=== PATIENT | female | born 1975 | race Asian ===

== ENCOUNTER 2024-03-10 21:11 | Inpatient (IN) | payer OTHER, SELFPAY ==
[2024-03-10] VITALS (9 sets, daily range): BP systolic 103–140; BP diastolic 43–64; BMI 33.2; BMI 34.0
--- NOTE | 2024-03-10 16:46 | ED.GENMED ---
History of Present Illness
General
Chief Complaint: Abdominal Pain
Source: patient
Exam Limitations: none
Time Seen by Provider: 03/10/24 16:21
Nursing documentation reviewed up to this point in time: agreed with
Travel History
Have you had any contact with someone who has COVID-19?: No
Do you have any symptoms of coronavirus? Fever > 100 degrees, chills, cough, shortness of breath, sore throat, loss of taste or smell, muscle aches, or headache?: No
History of Present Illness
History of Present Illness:
pt is a 48 y/o F with H/O GERD
here with mid back pain, n/v x 9 today
started around 130 am
has not tried anything for pain
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
went to PCP and sent for urgent labs, CTAP
wbc 13, ct shows findings suspicous for acute justin
recommended US
pain is currently 8/10 mid back
also RUQ
nausea
no fever, chills
no cp, sob
Past History
Past History
ED Past Medical History: GERD
ED Past Surgical History: Appendectomy
Social History
Tobacco: Non-smoker
Alcohol: None
Drug: None
Personal:
Review of Systems
Review of Systems
Allergies reviewed?: Yes
All Other Systems: Not applicable
Phy Exam
Physical Exam
Physical Exam:
GENERAL: Alert uncomfortable
EYE: pupils equal and reactive
NECK: Supple
ENT: o/p clr, mmm.
CARDIAC: Regular rate and rhythm .
LUNGS: Clear breath sounds bilaterally, no acute respiratory distress, no wheezes/rales/rhonchi
ABDOMEN: Soft, mod RUQ tenderness, ibrahim's sign positive, no r/g, no cvat, normal bowel sounds
back: no point tendneress, no rash
NEUROLOGICAL: Alert and oriented, no focal neuro deficits
SKIN: Warm and dry, skin intact.
PSYCH: Normal and appropriate interaction.
Course
Orders/Labs/Results
Orders:
Orders
03/10/24 16:44
Electrocardiogram (*1) Urgent
Reason for Study: Abdominal Pain
EKG- Treatment ONCE
0.9% Sodium Chloride 1000 ml [Nss] 1,000 ml IV BOLUS
HYDROmorphone [Dilaudid] 0.5 mg IV NOW STA
Ondansetron Injectable [Zofran] 4 mg IV NOW STA
US Abdomen Limited Urgent
Reason For Exam: poss acute justin on ct.
03/10/24 16:50
Test Result ONCE
03/10/24 18:08
HCG, Urine Qualitative Screen Urgent
Date Specimen was Collected: 03/10/24
Time Specimen was Collected: 18:06
Urinalysis Reflex To Culture Urgent
Date Specimen was Collected: 03/10/24
Time Specimen was Collected: 18:06
03/10/24 19:04
HYDROmorphone [Dilaudid] 0.5 mg IV NOW STA
Piperacillin/Tazo 3.375 Gram [Zosyn] 3.375 gram in 50 ml IV NOW
03/10/24 20:41
Admit/Transfer Patient As Directed
Co-Sign Provider:
Level of Care: Inpatient admission
Assign to:: Medical/Surgical
Physician / Group: Madi Figueroa
Diagnosis: Acute cholecystitis
Reason for Hospitalization: possible OR
IV abx
Expected length of stay greater than two midnights?: No
ELOS- Estimated Length of Stay in days: 2
I certify the patient meets the requirements for IP care: Yes
03/10/24 20:44
Code Status As Directed
Resuscitation Status: Full Code
03/10/24 22:02
HYDROmorphone [Dilaudid] 0.5 mg IV Q4HPRN PRN
Ondansetron Injectable [Zofran] 4 mg IV Q6HPRN PRN
03/10/24 22:02
Activity As Directed
Activity Level: Out of Bed-Early Mobility
Anti-embolism (GAGANDEEP) Hose As Directed
Type: Thigh high
Intake/ Output As Directed
Frequency: Per unit guidelines
Pneumatic Compression Sleeves As Directed
Type: Thigh high
Vital Signs As Directed
Frequency: Per unit guidelines
DX Deep Vein Thrombosis Video Routine
03/11/24 00:00
Piperacillin/Tazo 3.375 Gram [Zosyn] 3.375 gram in 50 ml IV Q6H
03/11/24 Breakfast
NPO
Allow oral meds: Yes
Allow clear liquids: No
Complete Blood Count/No Diff IN AM
Comprehensive Metabolic Panel IN AM
03/11/24 18:00
Pantoprazole [Protonix] 40 mg PO QPM
Abnormal Lab Results
03/10/24
18:08
Urine Ketones 1+ A
(Negative)
Vital Signs
Initial and Last Documented VS:
Initial Vital Signs
Temp Pulse Resp BP Pulse Ox
100.3 F 65 20 131/56 100
03/10/24 16:05 03/10/24 16:05 03/10/24 16:05 03/10/24 16:05 03/10/24 16:05
Last Documented Vital Signs
Temp Pulse Resp BP Pulse Ox
98.5 F 63 16 135/59 99
03/10/24 22:20 03/10/24 22:20 03/10/24 22:20 03/10/24 22:20 03/10/24 22:20
MDM/Problems Addressed
Differential Diagnosis Includes:
acute justin, cholelithiasis, vomiting
MDM/Problems Addressed:
48 y/o F with what looks like acute cholecystitis
back pain, n/v since 130, borderline temp, wbc 13, tender RUQ prior to meds, lfts normal, us shows gallstone and thickened wall, given zosyn and pain meds
she actually had outpatient labs and ctap today by PCP stat prior to my US here
accepted by dr. figueroa
npo after midnightl
*Critical Care Note
Total Time (30-74mins, 75-104mins- exclusive of procedures): Not Applicable
ED Attending Note
-
Portions of this chart may have been created with voice recognition software.� Occasional wrong word or��sound alike� substitutions may have occurred due to the inherent limitations of voice recognition software.
Discharge Plan
Departure
Patient Disposition: Admit
Date of Disposition: 03/10/24
Time of Disposition: 19:53
Admit to: Med/Surg
Admit to doctor: alfredo
Presentation/result/management discussed w/ accepting MD/DO: alfredo
Condition: Fair
Covid-19: Not Applicable
Discharge Problem:
Calculous cholecystitis
Interventions
Interventions:
*Risk Screen - Suicide Last Done: 03/10/24 16:05
*General Assessment Last Done: 03/10/24 16:05
*Neglect/Abuse Screening Last Done: 03/10/24 16:05
ED- Fall Risk Assessment Last Done: 03/10/24 16:57
*ED COVID-19 Vaccine History Last Done: 03/10/24 21:57
*Nursing Disposition Last Done: 03/10/24 21:57
UQ-Ipqbpd-Jghthzqubs Assessment Last Done: 03/10/24 16:57
Discharge Date and Time
Discharge Date/Time: 03/10/24 21:50
[2024-03-10] MEDS: NSS 1000 IV (16:51)
[2024-03-10] MEDS: DILAUDID 0.5 MG IV ×3 (16:51→23:37)
[2024-03-10] MEDS: ZOFRAN 4 MG IV ×2 (16:51→22:36)
[2024-03-10 18:17] LABS: HCG, Urine Qualitative Screen Negative; Urine Albumin Negative (Neg - Trace); Urine Bilirubin Negative (Negative); Urine Character Clear (Clear); Urine Color Straw; Urine Glucose Negative (Negative); Urine Ketone 1+ (Negative); Urine Leukocyte Negative (Negative); Urine Nitrite Negative (Negative); Urine Occult Blood Negative (Negative); Urine Specific Gravity 1.005 (<1.030); Urine Urobilinogen Negative (Neg - 1+); Urine pH 6.5 (5.0-9.0)
[2024-03-10] MEDS: ZOSYN 50 IV ×2 (19:17→23:37)
--- NOTE | 2024-03-10 20:57 | HPS.HSE ---
Addendum entered and electronically signed by Madi Figueroa MD 03/11/24 10:49:
I saw and examined the patient.
The Supervisor [employer]'s note was reviewed and I agree with the note.
Comment: Remains ttp to RUQ this am. Plan for lap justin today. Informed consent obtained. D/w pt and .
Original Note:
Family Physician
-
Family Physician: Suyapa Pete DO
Chief Complaint
-
'Abdomen pain' ' nausea and vomiting'
History of Present Illness
48 y/o patient with past medical hx of GERD, presents to ER with the c/o abdomen pain since last night. Patient was feeling 'gassy' at first and thought due to the lentils and other food she ate. Then noticed she was nauseous and had been vomiting
all night, threw up food first then it was bilious by description. 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 she went to PCP and was advised to come to [facility] for further work
up. States pain as crampy starts at mid chest radiates to umbilicus and then towards b/l upper back at bra straps. + belching, LBM 5/6, voiding without difficulty. At present denies any chest pain or shortness of breath. Abdomen pain 2/10 after pain
medications. Denies any nausea at present. Hx of x1. Hx of GERD and is on Omeprazole daily
Medical History
Past Medical History
Past Medical History: Reports GERD
Past Surgical History: Reports (x1)
Social History
Tobacco: Non-smoker
Alcohol: Occasional
Drug: None
Family History
Family History: Not pertinent
Allergies / Home Medications
Allergies reflects when Allergies were last updated in [employer].
Home Medications with original date entered in [employer]
Allergy/Medication List:
Allergies
Allergy/AdvReac Type Severity Reaction Status Date / Time
latex Allergy dry skin Verified 03/10/24 16:08
Sulfa (Sulfonamide Allergy Rash Verified 03/10/24 16:08
Antibiotics)
Home Medications
albuterol sulfate 90 mcg/actuation aerosol inhaler 2 puff inhalation R Q4HPRN PRN sob/wheezing 03/10/24
cholecalciferol (vitamin D3) 25 mcg (1,000 unit) tablet (Vitamin D3) 25 mcg PO DAILY 03/10/24
cyanocobalamin (vitamin B-12) 1,000 mcg tablet (Vitamin B-12) 1,000 mcg PO DAILY 03/10/24
omeprazole 40 mg capsule,delayed release 40 mg PO QPM 03/10/24
Review of Systems
-
History Source: Patient
A 12 point ROS was completed and negative except as noted: Yes
Constitutional: Reports No Symptoms
EENT: Reports No Symptoms
Respiratory: Reports No Symptoms
Cardiac: Reports No Symptoms
Abdomen/GI: Reports Abdominal Pain ('crampy' 'gassy' ) and Nausea
: Reports No Symptoms
Musculoskeletal: Reports No Symptoms
Skin: Reports No Symptoms
Neurological: Reports No Symptoms
Endocrine: Reports No Symptoms
Hematologic/Lymphatic: Reports No Symptoms
Psych: Reports No Symptoms
Physical Exam
Vital Signs
Vital Signs
Temp Pulse Resp BP Pulse Ox
98.2 F 53 18 120/50 98
03/10/24 16:36 03/10/24 17:11 03/10/24 17:11 03/10/24 20:00 03/10/24 20:30
Physical Exam
General: Well Developed, Well Nourished and No Apparent Distress
HEENT: NormoCephalic, Moist mucous membranes and Atraumatic
Respiratory: Clear and Non Labored Respirations
Cardiac: S1/S2 and Regular Rhythm
Breast: Deferred by me
GI: Soft, Non Distended, Normal Bowel Sounds and Tender
Rectal: Deferred by Provider
Genito-urinary: Deferred by me
Musculoskeletal: No Clubbing, No Cyanosis and No Edema
Skin: Warm and Dry
Neuro: Awake, AO x 3 and Nonfocal/grossly intact
Hematologic/Lymphatic: No Lymphadenopathy
Psych: Calm and Intact Judgment/Insight
Laboratory Results
-
Allergies
Allergy/AdvReac Type Severity Reaction Status Date / Time
latex Allergy dry skin Verified 03/10/24 16:08
Sulfa (Sulfonamide Allergy Rash Verified 03/10/24 16:08
Antibiotics)
Home Medications
albuterol sulfate 90 mcg/actuation aerosol inhaler 2 puff inhalation R Q4HPRN PRN sob/wheezing 03/10/24
cholecalciferol (vitamin D3) 25 mcg (1,000 unit) tablet (Vitamin D3) 25 mcg PO DAILY 03/10/24
cyanocobalamin (vitamin B-12) 1,000 mcg tablet (Vitamin B-12) 1,000 mcg PO DAILY 03/10/24
omeprazole 40 mg capsule,delayed release 40 mg PO QPM 03/10/24
Data Reviewed
-
CT Scan: Report Reviewed by me
Ultrasound: Report Reviewed by me
Lab Data: Labs Reviewed by me
Impression/Plan
-
48 y/o patient with abdomen pain
# Abdomen pain likely due to Acute cholecystitis
CT abd/pelvis: Mild rim enhancement of the gallbladder with mild wall thickening, cholelithiasis. No pericholecystic fluid. No biliary ductal dilatation. No calcification overlying the region of the distal common bile duct. This may
represent early acute cholecystitis
-WBC 13.2
-Febrile upon arrival 100.3
-continue IV Zosyn
-Continue IV analgesics
-Continue IV antiemetics
-NPO
-Admit under Dr. Figueroa
# GERD
-continue Omeprazole
# Incidental finding of 2.6 cm lesion in the right adrenal gland most consistent with an adenoma.
-should be advised to follow up out patient.
DVT prophylaxis: SCD's
Full Code
[2024-03-11] VITALS (17 sets, daily range): BP systolic 86–149; BP diastolic 55–81
[2024-03-11 05:20] LABS: Hematocrit 34.8 % (37.0-47.0); Hemoglobin 11.6 g/dL (12.0-16.0); Mean Corp Hgb Conc. 33.3 g/dL (33.0-37.0); Mean Corpuscular Hgb 27.9 pg (27.0-31.0); Mean Corpuscular Volume 83.7 fL (81.0-99.0); Mean Platelet Volume 10.7 fL (7.4-10.4); Platelet Count 208 10^3/uL (130-400); Red Blood Cell Count 4.16 10^6/uL (4.20-5.40); Red Cell Dist. Width 13.6 % (11.5-14.5); White Blood Cell Count 11.2 10^3/uL (4.8-10.8)
[2024-03-11] MEDS: ZOSYN 50 IV ×4 (05:21→23:02)
[2024-03-11 05:46] LABS: ALT (SGPT) 16 U/L (0-35); AST (SGOT) 19 U/L (14-36); Alkaline Phosphatase 85 U/L (38-126); Blood Urea Nitrogen 14 mg/dl (7-17); Calcium 9.4 mg/dl (8.4-10.2); Carbon Dioxide 26 mmol/L (22-30); Chloride 105 mmol/L (98-107); Estimated Creatinine Clearance 98 ml/min; Glucose 113 mg/dl (70-99); Sodium 140 mmol/L (135-145); Total Bilirubin 1.4 mg/dl (0.2-1.3); Total Protein 7.1 g/dl (6.3-8.2); eGFR > 60.00
[2024-03-11] MEDS: NSS 1000 IV ×2 (06:33→23:02)
--- NOTE | 2024-03-11 11:18 | CM ---
Reviewed the chart notes and spoke with the patient and her spouse at the bedside. The patient anticipates going to the OR this afternoon. The patient resides with her spouse in a two story home with two steps to enter. The patient reports no
DME/VN/SNF in the past. The patient confirmed her pharmacy of choice is [facility]. CM continues to be available to patient/family and is monitoring medical plan for needs at discharge.
Plan: Discharge to home when medically stable. The patient's spouse will provide transportation. No needs anticipated.
--- NOTE | 2024-03-11 14:33 | OR.RPT ---
Operative Report
Operative Report
Primary Surgeon: Henry
Assisting: Dang LEMUS
Pre-op Diagnosis: Acute calculous cholecystitis
Post-op Diagnosis: Same
Procedure Performed: Laparoscopic cholecystectomy
Anesthesia Type: GETA
Specimen / Cultures: Gallbladder
Estimated Blood Loss: 20cc
Complications: None immediate
Operative Findings: Severely inflamed gallbladder, tensely distended and decompressed with cyst aspiration needle; patchy wall necrosis; gb and contained stones removed intact
Date of Surgery: 03/11/24
Indications: This 48F developed right upper quadrant/epigastric pain and on workup was found to have acute calcuklous cholecystitis without elevation of liver enzymes and without ductal dilation. Laparoscopic cholecystectomy was elected.
Description of procedure: The patient was placed on the operating table in the supine position. General anesthesia was induced. A time-out was completed verifying correct patient, procedure, site, positioning, and special equipment prior to
beginning this procedure. An orogastric tube was placed. The abdomen was prepped and draped in the usual sterile fashion. A stab incision was made in left upper quadrant and the Veress needle was inserted. Proper position was confirmed by aspiration
and saline meniscus test. The abdomen was insufflated with carbon dioxide to a pressure of 12 mmHg. The patient tolerated insufflation well.
A 5mm optical trocar was then inserted at the umbilicus. The laparoscope was inserted and the abdomen inspected. No injuries from initial trocar placement or Veress needle insertion were noted. Additional trocars were then inserted in the following
locations: a 12-mm trocar in the right epigastrium and two 5-mm trocars along the right costal margin. The abdomen was inspected and no abnormalities were found. The table was placed in the reverse Trendelenburg position with the right side up. The
gallbladder was tensely distended with thin omental adhesions. The adhesions were swept down bluntly and the gallbladder was decompressed with a cyst aspiration needle. The dome of the gallbladder was grasped with an atraumatic grasper and retracted
over the dome of the liver. The infundibulum was also grasped with an atraumatic grasper and retracted toward the right lower quadrant. This maneuver exposed Calot�s triangle. The peritoneum overlying the gallbladder infundibulum was then incised
and the cystic duct and cystic artery identified and circumferentially dissected so that a clear view of the liver was achieved through a window between the cystic duct an cystic artery. At this time, the only two structures going into the
gallbladder were the cystic artery and cystic duct.
The cystic duct and cystic artery were then doubly clipped and divided close to the gallbladder. A posterior cystic artery branch was exposed and controlled with clips and divided. The gallbladder was then dissected from its peritoneal attachments
by electrocautery. Hemostasis was assured and the gallbladder and contained stones were removed using an endoscopic retrieval bag placed through the subxiphoid port. The gallbladder was passed off the table as a specimen. The gallbladder fossa was
copiously irrigated with saline and hemostasis was again assured. There was no evidence of bleeding from the gallbladder fossa or cystic artery or leakage of the bile from the cystic duct stump. The subxiphoid trocar site was closed at the fascial
level laparoscopically with 2-0 PDS. Secondary trocars were removed under direct vision and noted to be hemostatic. The laparoscope was withdrawn and the umbilical trocar removed. The abdomen was allowed to collapse. The skin was closed with
subcuticular sutures of 4-0 monocryl and topical skin adhesive. The orogastric tube was removed.
The patient tolerated the procedure well and was taken to the postanesthesia care unit in stable condition.
[2024-03-11] MEDS: DILAUDID 0.5 MG IV ×3 (14:59→15:44)
[2024-03-11] MEDS: TYLENOL 1000 MG PO ×2 (16:57→22:02)
[2024-03-11] MEDS: ROXICODONE 5 MG PO (17:02)
[2024-03-11] MEDS: PROTONIX 40 MG PO (17:03)
--- NOTE | 2024-03-11 18:30 | PTCARENOTE ---
Received patient from PACU via bed around 1700 in stable condition. Patient was c/o back pain b/l mid. Bianca [address] Figueroa made aware. Family at bedside. Call vines in reach.
[2024-03-12 03:00] VITALS: BP 137/63
[2024-03-12 05:15] LABS: Hematocrit 31.1 % (37.0-47.0); Hemoglobin 10.4 g/dL (12.0-16.0); Mean Corp Hgb Conc. 33.4 g/dL (33.0-37.0); Mean Corpuscular Hgb 27.7 pg (27.0-31.0); Mean Corpuscular Volume 82.9 fL (81.0-99.0); Mean Platelet Volume 11.5 fL (7.4-10.4); Platelet Count 209 10^3/uL (130-400); Red Blood Cell Count 3.75 10^6/uL (4.20-5.40); Red Cell Dist. Width 13.5 % (11.5-14.5)
[2024-03-12] MEDS: TYLENOL 1000 MG PO ×2 (05:38→12:24)
[2024-03-12] MEDS: ZOSYN 50 IV ×3 (05:41→17:26)
[2024-03-12 05:57] LABS: ALT (SGPT) 96 U/L (0-35); AST (SGOT) 130 U/L (14-36); Albumin 3.7 g/dl (3.5-5.0); Alkaline Phosphatase 120 U/L (38-126); Blood Urea Nitrogen 13 mg/dl (7-17); Calcium 8.7 mg/dl (8.4-10.2); Carbon Dioxide 24 mmol/L (22-30); Chloride 108 mmol/L (98-107); Estimated Creatinine Clearance 112 ml/min; Glucose 122 mg/dl (70-99); Lipase 29 U/L (23-300); Potassium 3.9 mmol/L (3.5-5.1); Sodium 137 mmol/L (135-145); Total Bilirubin 4.3 mg/dl (0.2-1.3); Total Protein 6.7 g/dl (6.3-8.2); eGFR > 60.00
--- NOTE | 2024-03-12 07:00 | W.PN.GS2 ---
Today's Communication / Plan
-
MRCP
Assessment / Plan
-
48F POD1 s/p lap justin for ACC
Low grade temps, ambulating, cindy PO
WBC slightly elevated, likely reactive
LFTs trended up overnight, possible choledocholithiasis
Plan:
MRCP to r/u ductal stone
Cont IV abx
NPO pending MRCP in case need for ERCP
PRN pain meds
Ambulate
DVT ppx
Subjective Data
-
Date of Service: March 12, 2024
Low grade temps, pain improved this am, ambulating, cindy PO last night without issue
Objective Data
-
Intake and Output
03/11/24 03/12/24 03/13/24
06:59 06:59 06:59
Intake Total 50 / 50 1560 / 1560
Output Total 1250 / 1250
Balance 50 / 50 310 / 310
Intake:
Oral fluids 500 / 500
IV fluids (Total) 960 / 960
IV piggybacks 50 / 50 100 / 100
Output:
Urine, Voided 1250 / 1250
Other:
Number of approximated MODERATE 2
amounts of urine
Vital Signs
Temp Pulse Resp BP Pulse Ox
99.3 F 71 16 137/63 93
03/12/24 03:00 03/12/24 03:00 03/12/24 03:00 03/12/24 03:00 03/12/24 03:00
Lab Results
03/12/24 04:46
03/12/24 04:46
Calcium 8.7 mg/dl (8.4-10.2) 03/12/24 04:46
Total Bilirubin 4.3 mg/dl (0.2-1.3) H D 03/12/24 04:46
Direct Bilirubin 2.0 mg/dl (0.0-0.4) H 03/12/24 04:46
AST 130 U/L (14-36) H 03/12/24 04:46
ALT 96 U/L (0-35) H 03/12/24 04:46
Alkaline Phosphatase 120 U/L (38-126) 03/12/24 04:46
Total Protein 6.7 g/dl (6.3-8.2) 03/12/24 04:46
Albumin 3.7 g/dl (3.5-5.0) 03/12/24 04:46
Physical Exam
-
Gen: NAD
Abd: soft, ttp at incisions and laterally on the right, worst at epigastric incision
[2024-03-12 07:50] VITALS: BP 147/60
[2024-03-12] MEDS: ZOFRAN 4 MG IV (08:51)
--- NOTE | 2024-03-12 09:51 | CM ---
Chart reviewed; assessment completed 03/12/2024. Keila will have MRCP today. Anticipate return home with spouse at discharge with no needs.
[2024-03-12] MEDS: MOTRIN 600 MG PO ×2 (12:27→22:02)
--- NOTE | 2024-03-12 12:34 | W.PN.UPDATE ---
Addendum entered and electronically signed by Madi Figueroa MD 03/12/24 12:55:
D/w nuke med. No need for NPO. Pt prefers to get HIDA today rather than waiting. Will proceed with HIDA this afternoon.
Original Note:
Update Note
Progress Note Update
Pt seen and evaluated at bedside. She reports her pain is improving, it has mostly migrated to the epigastric incision site now. Mostly bothers her when she moves around and 'pushes herself.' Her back pain has resolved. She has been eating thick
creamy soup without issues. She has not required pain medicine so far today. She is ambulating. MRI results reviewed with pt and . No evidence of ductal stones, ductal dilation or fluid collections. Would like to see her LFTs trend down
tomorrow. If they do not, plan to proceed with HIDA scan to rule out leak or obstruction not detected by MRI.
[2024-03-12 12:37] VITALS: BP 147/64
[2024-03-12 16:09] VITALS: BP 125/52
--- NOTE | 2024-03-12 16:37 | W.PN.UPDATE ---
Update Note
Progress Note Update
HIDA reviewed. No bowel activity at 60 min. Concern for bile duct injury. Pt will be transferred to [place] for further mgmt. D/w pt and in detail. All questions answered.
[2024-03-12] MEDS: NSS 1000 IV (17:26)
[2024-03-12] MEDS: PROTONIX PO (17:27)
[2024-03-12] MEDS: TYLENOL PO ×2 (17:28→22:06)
--- NOTE | 2024-03-12 19:16 | PTCARENOTE ---
Pt off floor for HIDA scan
--- NOTE | 2024-03-12 19:42 | PTCARENOTE ---
Patient back on 2S from imaging
[2024-03-12 19:45] VITALS: BP 153/74
--- NOTE | 2024-03-12 22:08 | PTCARENOTE ---
According to lizett MORAN and Dr. Figueroa's updated note on 03/12/2024 at 1637, Pt will be transferred to [place] for further mgmt tonight 03/12.
Plan of care D/w pt and w/ Dr. Figueroa.
Report given to DEAN Concepcion ([phone]) by this RN at beginning of shift.
Transport setup by mobile unit assistant- Acute Care. 'Transport residential support specialist form' was not completed by case management. Form was signed by this RN and transport staff at 2205.
notified that pt was on her way to [place].
--- NOTE | 2024-03-18 13:51 | W.DS.TRANS ---
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
-
Discharge Instructions:
Discharge Diagnosis/Procedures Acute calculous cholecystitis
Diet No restrictions
Activity No strenuous activity
Driving Restrictions No driving for 24 hours
Bathing Restrictions OK to Shower
Wound Care Allow skin glue to flake off on its own
Instructions: Cholecystectomy (DC)
Stand-Alone Forms:
Changes to Home Medications: No
Discharge Medications:
DC Medications w/original date entered in [email or web address]
albuterol sulfate 90 mcg/actuation aerosol inhaler 2 puff inhalation R Q4HPRN PRN sob/wheezing 03/10/24
cholecalciferol (vitamin D3) 25 mcg (1,000 unit) tablet (Vitamin D3) 25 mcg PO DAILY 03/10/24
cyanocobalamin (vitamin B-12) 1,000 mcg tablet (Vitamin B-12) 1,000 mcg PO DAILY 03/10/24
omeprazole 40 mg capsule,delayed release 40 mg PO QPM 03/10/24
oxycodone 5 mg tablet 5 - 10 mg (1 - 2 x 5 mg) PO Q4HPRN PRN moderate to severe pain #16 tabs 03/11/24
Home Medication Changes
Pending Results: No
Additional Pending Results:
Pt was transferred to [facility] for further care.
== END 2024-03-12 22:20 | disposition other institution (70) | DRG 419 ==
LOC: 2 SOUTH 21:11
PROVIDERS: Nurse Practitioner Gerontology; Physician Assistant; ADMITTING PHYSICIAN Surgery; EMERGENCY PHYSICIAN Emergency Medicine; FAMILY PHYSICIAN Family Medicine
PROC: 0FT44ZZ Resection of Gallbladder, Percutaneous Endoscopic Approach (ICD-10-PCS; 2024-03-11)
DX: K80.00 Calculus of gallbladder with acute cholecystitis without obstruction (principal); K21.9 Gastro-esophageal reflux disease without esophagitis
CPT/HCPCS: 88304; 36415; 74170; 74181; 76705; 78226; 80053; 81003; 81025; 82150; 82248; 83690; 85025; 85027; 93005; 96374; 96375; 96376; 99285; A9537; Q9967

== ENCOUNTER 2024-05-26 08:11 | Outpatient (RCR) | payer OTHER, SELFPAY | END 2024-05-26 23:59 | disposition home or self-care (01) | LOC: RPT 08:11 | PROVIDERS: ATTENDING PHYSICIAN Surgery; FAMILY PHYSICIAN Family Medicine | DX: M62.89 Other specified disorders of muscle (principal); N39.3 Stress incontinence (female) (male); N39.41 Urge incontinence | CPT/HCPCS: 97163; 97530 ==

== ENCOUNTER 2024-06-24 17:16 | Outpatient (RCR) | payer OTHER, SELFPAY | END 2024-06-24 23:59 | disposition home or self-care (01) | LOC: RPT 17:16 | PROVIDERS: ATTENDING PHYSICIAN Surgery; FAMILY PHYSICIAN Family Medicine | DX: M62.89 Other specified disorders of muscle (principal); N39.3 Stress incontinence (female) (male); N39.41 Urge incontinence; Z73.6 Limitation of activities due to disability | CPT/HCPCS: 97140; 97530 ==

== ENCOUNTER → 2024-07-23 13:06 | Outpatient (REF) | payer OTHER, SELFPAY | LOC: WDC 13:06 | PROVIDERS: ATTENDING PHYSICIAN Family Medicine | DX: Z12.31 Encounter for screening mammogram for malignant neoplasm of breast (principal) | CPT/HCPCS: 77063; 77067 ==

== ENCOUNTER 2024-07-29 16:53 | Outpatient (RCR) | payer OTHER, SELFPAY | END 2024-07-29 23:59 | disposition home or self-care (01) | LOC: RPT 16:53 | PROVIDERS: ATTENDING PHYSICIAN Surgery; FAMILY PHYSICIAN Family Medicine | DX: M62.89 Other specified disorders of muscle (principal); N39.3 Stress incontinence (female) (male); N39.41 Urge incontinence; Z73.6 Limitation of activities due to disability | CPT/HCPCS: 97140; 97530 ==

== ENCOUNTER 2024-08-26 17:17 | Outpatient (RCR) | payer OTHER, SELFPAY | END 2024-08-26 23:59 | disposition home or self-care (01) | LOC: RPT 17:17 | PROVIDERS: ATTENDING PHYSICIAN Surgery; FAMILY PHYSICIAN Family Medicine | DX: M62.89 Other specified disorders of muscle (principal); N39.3 Stress incontinence (female) (male); N39.41 Urge incontinence; Z73.6 Limitation of activities due to disability | CPT/HCPCS: 97110; 97140; 97530 ==

== ENCOUNTER → 2025-08-07 10:48 | Outpatient (REF) | payer OTHER, SELFPAY | LOC: RAD 10:48 | PROVIDERS: ATTENDING PHYSICIAN Physician Assistant; FAMILY PHYSICIAN Student in an Organized Health Care Education/Training Program | DX: E27.9 Disorder of adrenal gland, unspecified (principal) | CPT/HCPCS: 74150 ==

== ENCOUNTER → 2025-08-21 08:46 | Outpatient (REF) | payer OTHER, SELFPAY | LOC: WDC 08:46 | PROVIDERS: ATTENDING PHYSICIAN Nurse Practitioner Adult Health; FAMILY PHYSICIAN Student in an Organized Health Care Education/Training Program | DX: Z12.31 Encounter for screening mammogram for malignant neoplasm of breast (principal) | CPT/HCPCS: 77063; 77067 ==